=== PATIENT | female | born 1935 | race Caucasian/White ===

== ENCOUNTER 2019-08-03 16:00 | Inpatient (IN) ==
[2019-08-03] MEDS ORDERED: AZITHROMYCIN 250 MG TABLET PO STA (16:29)
[2019-08-03] MEDS ORDERED: cefTRIAXone 1,000 MG in SODIUM CHLORIDE 0.9% 100 ML IV STA (16:31)
[2019-08-03 16:36] LABS: Basophils % 0.1 % (0.0-0.8); Eosinophils # 0.1 10*3/uL (0.0-0.87); Eosinophils % 0.8 % (0.00-10.9); Hematocrit 40.6 VOL% (35.7-47.0); Hemoglobin 13.3 GM/DL (12.0-16.0); Immature Granulocytes % 0.5 %; Immature Granulocytes Absolute 0.06 #; Lymphocytes % 9.2 % (21.3-54.2); Mean Corpuscular HGB Conc 32.8 GM/DL (32-36); Mean Corpuscular Volume 86.6 FL (87-102); Mean Platelet Volume 11.2 FL (9.6-12.0); Monocytes % 4.7 % (1.7-12.7); Neutrophils % 84.7 % (38.7-73.9); Platelet Count 255 T/CUMM (130-400); Red Blood Count 4.69 MC/CUMM (3.8-5.5); Red Cell Distribution Width 13.5 % (9.3-17.3); White Blood Count 11.4 T/CUMM (4-12)
[2019-08-03 17:21] LABS: Albumin 2.4 G/DL (3.4-5.0); Bilirubin,Total 0.6 MG/DL (0.2-1.0); Calcium 8.6 MG/DL (8.5-10.1); Osmolality,Calculated 266.5 MOS/KG (273-304); Total Protein 6.7 G/DL (6.4-8.3)
[2019-08-03] MEDS: HYDROXYCHLOROQUINE 200 MG TABLET PO SCH ×2 (17:29→18:04)
[2019-08-03] MEDS: ZINC GLUCONATE 50 MG TABLET PO SCH ×2 (17:30→18:04)
[2019-08-03] MEDS ORDERED: PIPERACILLIN/TAZOBACTAM 3,375 MG in SODIUM CHLORIDE 0.9% 100 ML IV STA (17:39)
[2019-08-03] MEDS ORDERED: ACETAMINOPHEN 325 MG TABLET PO PRN (18:23)
[2019-08-03] MEDS ORDERED: ONDANSETRON 4 MG/2 ML VIAL IV PRN (18:23)
[2019-08-03] MEDS ORDERED: CEFEPIME 2,000 MG in SODIUM CHLORIDE 0.9% 100 ML IV SCH (18:30)
[2019-08-03] MEDS ORDERED: SODIUM CHLORIDE 0.9% 1,000 ML IV SCH (19:00)
[2019-08-03] MEDS: clonazePAM 0.5 MG TABLET PO SCH (21:18)
[2019-08-03] MEDS: busPIRone 5 MG TABLET PO SCH (21:18)
[2019-08-03] MEDS: DULoxetine 30 MG CAPSULE PO SCH (21:18)
[2019-08-03] MEDS: METOPROLOL TARTRATE 25 MG TABLET PO SCH (21:19)
[2019-08-03] MEDS: SODIUM CHLORIDE 0.9% 500 ML IV SCH (21:19)
[2019-08-03] MEDS: MEROPENEM 500 MG in SODIUM CHLORIDE 0.9% 100 ML IV SCH (21:25)
[2019-08-03] MEDS: GENTAMICIN INJ 320 MG in SODIUM CHLORIDE 0.9% 100 ML IV SCH (23:25)
[2019-08-04 01:37] LABS: Basophils % 0.2 % (0.0-0.8); Eosinophils # 0.1 10*3/uL (0.0-0.87); Hemoglobin 11.6 GM/DL (12.0-16.0); Immature Granulocytes % 0.3 %; Immature Granulocytes Absolute 0.03 #; Lymphocytes # 1.2 10*3/uL (1.4-4.0); Mean Corpuscular HGB Conc 33.1 GM/DL (32-36); Mean Corpuscular Volume 85.8 FL (87-102); Monocytes % 4.5 % (1.7-12.7); Platelet Count 222 T/CUMM (130-400); Red Blood Count 4.08 MC/CUMM (3.8-5.5); Red Cell Distribution Width 13.3 % (9.3-17.3); White Blood Count 10.4 T/CUMM (4-12)
[2019-08-04 01:39] LABS: Bilirubin,Total 0.5 MG/DL (0.2-1.0); Calcium 7.6 MG/DL (8.5-10.1); VLDL CHOLESTEROL 21.8 MG/DL
[2019-08-04] MEDS: MEROPENEM 500 MG in SODIUM CHLORIDE 0.9% 100 ML IV SCH ×3 (03:36→20:45)
[2019-08-04] MEDS ORDERED: GLUCAGON 1 MG VIAL IM PRN (08:11)
[2019-08-04] MEDS ORDERED: DEXTROSE 10% 250 ML BAG IV PRN (08:11)
[2019-08-04] MEDS: ASPIRIN EC 81 MG TABLET PO SCH (08:44)
[2019-08-04] MEDS: ENOXAPARIN 40 MG/0.4 ML SYRINGE SUBCUT SCH (08:44)
[2019-08-04] MEDS: METOPROLOL TARTRATE 25 MG TABLET PO SCH ×2 (08:45→20:45)
[2019-08-04] MEDS: PANTOPRAZOLE 40 MG TABLET PO SCH (08:45)
[2019-08-04] MEDS: busPIRone 5 MG TABLET PO SCH ×2 (08:45→20:45)
[2019-08-04] MEDS: DIGOXIN 0.125 MG TABLET PO SCH (08:45)
[2019-08-04] MEDS: AZITHROMYCIN 250 MG TABLET PO SCH (08:45)
[2019-08-04] MEDS: HYDROXYCHLOROQUINE 200 MG TABLET PO SCH ×2 (08:48→20:45)
[2019-08-04] MEDS: FLUTICASONE 50 MCG NASAL SPRAY 16 GM BOTTLE BOTH NARES SCH (08:49)
[2019-08-04] MEDS: SODIUM CHLORIDE 0.9% 500 ML IV SCH (08:54)
[2019-08-04 14:18] LABS: Apearance,Urine CLEAR (Clear); Bilirubin,Urine Negative (Negative); Blood, Urine Negative (Negative); Glucose,Urine (UA) Negative (Negative); Hyaline Casts,Urine 12 /LPF (0-3); Ketones,Urine Negative (Negative); Mucus,Urine Occasional /LPF (Occasional); Nitrite,Urine Negative (Negative); Protein,Urine 30 MG/DL; RBC,Urine 2 /HPF (0-4); Urine Color Yellow (Yellow); Urine Specific Gravity 1.013 (1.001-1.035); Urine Urobilinogen < 2.0 EU/DL (0.2-1.0); WBC,Urine 12 /HPF (0-6)
[2019-08-04] MEDS: DULoxetine 30 MG CAPSULE PO SCH (20:45)
[2019-08-05] MEDS: MEROPENEM 500 MG in SODIUM CHLORIDE 0.9% 100 ML IV SCH ×3 (05:15→19:46)
[2019-08-05 05:17] LABS: Basophils % 0.1 % (0.0-0.8); Eosinophils # 0.3 10*3/uL (0.0-0.87); Hematocrit 37.7 VOL% (35.7-47.0); Hemoglobin 12.1 GM/DL (12.0-16.0); Immature Granulocytes % 0.5 %; Immature Granulocytes Absolute 0.06 #; Mean Corpuscular HGB Conc 32.1 GM/DL (32-36); Mean Corpuscular Volume 87.5 FL (87-102); Mean Platelet Volume 11.4 FL (9.6-12.0); Monocytes % 5.2 % (1.7-12.7); Neutrophils % 84.2 % (38.7-73.9); Platelet Count 272 T/CUMM (130-400); Red Blood Count 4.31 MC/CUMM (3.8-5.5); Red Cell Distribution Width 13.6 % (9.3-17.3); White Blood Count 12.4 T/CUMM (4-12)
[2019-08-05 05:49] LABS: Albumin 1.8 G/DL (3.4-5.0); Bilirubin,Total 0.9 MG/DL (0.2-1.0); Calcium 8.4 MG/DL (8.5-10.1); Osmolality,Calculated 274.5 MOS/KG (273-304); Total Protein 5.6 G/DL (6.4-8.3)
[2019-08-05] MEDS: ASPIRIN EC 81 MG TABLET PO SCH (09:47)
[2019-08-05] MEDS: ENOXAPARIN 40 MG/0.4 ML SYRINGE SUBCUT SCH (09:48)
[2019-08-05] MEDS: FLUTICASONE 50 MCG NASAL SPRAY 16 GM BOTTLE BOTH NARES SCH (09:48)
[2019-08-05] MEDS: ZINC SULFATE 220 MG CAPSULE PO SCH (09:48)
[2019-08-05] MEDS: busPIRone 5 MG TABLET PO SCH ×2 (09:48→21:54)
[2019-08-05] MEDS: PANTOPRAZOLE 40 MG TABLET PO SCH (09:48)
[2019-08-05] MEDS: HYDROXYCHLOROQUINE 200 MG TABLET PO SCH ×2 (09:48→21:54)
[2019-08-05] MEDS: DIGOXIN 0.125 MG TABLET PO SCH (09:48)
[2019-08-05] MEDS: METOPROLOL TARTRATE 25 MG TABLET PO SCH ×2 (09:48→21:54)
[2019-08-05] MEDS: GENTAMICIN INJ 320 MG in SODIUM CHLORIDE 0.9% 100 ML IV SCH ×2 (09:49→11:11)
[2019-08-05] MEDS: AZITHROMYCIN 250 MG TABLET PO SCH (09:49)
[2019-08-05] MEDS: SODIUM CHLORIDE 0.9% 500 ML IV SCH (19:05)
[2019-08-05] MEDS: clonazePAM 0.5 MG TABLET PO SCH (19:46)
[2019-08-05] MEDS: DULoxetine 30 MG CAPSULE PO SCH (21:54)
[2019-08-06] MEDS: MEROPENEM 500 MG in SODIUM CHLORIDE 0.9% 100 ML IV SCH ×3 (03:29→20:45)
[2019-08-06 06:31] LABS: Basophils % 0.1 % (0.0-0.8); Eosinophils # 0.2 10*3/uL (0.0-0.87); Hematocrit 36.7 VOL% (35.7-47.0); Hemoglobin 12.1 GM/DL (12.0-16.0); Immature Granulocytes % 0.5 %; Immature Granulocytes Absolute 0.07 #; Lymphocytes # 1.1 10*3/uL (1.4-4.0); Lymphocytes % 7.6 % (21.3-54.2); Mean Corpuscular Volume 85.7 FL (87-102); Mean Platelet Volume 11.3 FL (9.6-12.0); Monocytes % 6.2 % (1.7-12.7); Neutrophils % 84.6 % (38.7-73.9); Platelet Count 293 T/CUMM (130-400); Red Blood Count 4.28 MC/CUMM (3.8-5.5); Red Cell Distribution Width 13.6 % (9.3-17.3); White Blood Count 14.9 T/CUMM (4-12)
[2019-08-06 06:50] LABS: Albumin 1.8 G/DL (3.4-5.0); Bilirubin,Total 0.8 MG/DL (0.2-1.0); Calcium 8.6 MG/DL (8.5-10.1); Osmolality,Calculated 270.8 MOS/KG (273-304); Total Protein 5.8 G/DL (6.4-8.3)
[2019-08-06] MEDS: METOPROLOL TARTRATE 25 MG TABLET PO SCH ×2 (09:41→20:45)
[2019-08-06] MEDS: busPIRone 5 MG TABLET PO SCH ×2 (09:41→20:45)
[2019-08-06] MEDS: AZITHROMYCIN 250 MG TABLET PO SCH (09:41)
[2019-08-06] MEDS: PANTOPRAZOLE 40 MG TABLET PO SCH (09:41)
[2019-08-06] MEDS: ASPIRIN EC 81 MG TABLET PO SCH (09:41)
[2019-08-06] MEDS: DIGOXIN 0.125 MG TABLET PO SCH (09:41)
[2019-08-06] MEDS: ENOXAPARIN 40 MG/0.4 ML SYRINGE SUBCUT SCH (09:41)
[2019-08-06] MEDS: FLUTICASONE 50 MCG NASAL SPRAY 16 GM BOTTLE BOTH NARES SCH (09:42)
[2019-08-06] MEDS: HYDROXYCHLOROQUINE 200 MG TABLET PO SCH ×2 (10:54→20:45)
[2019-08-06] MEDS ORDERED: GENTAMICIN INJ 320 MG in SODIUM CHLORIDE 0.9% 100 ML IV SCH (11:00)
[2019-08-06] MEDS: POTASSIUM CHLORIDE 20 MEQ TABLET PO PRN ×2 (15:10→15:34)
[2019-08-06] MEDS: DULoxetine 30 MG CAPSULE PO SCH (20:45)
[2019-08-07] MEDS: MEROPENEM 500 MG in SODIUM CHLORIDE 0.9% 100 ML IV SCH ×3 (05:00→20:38)
[2019-08-07] MEDS: ZINC OXIDE PASTE 113 GM TUBE TOP SCH ×2 (08:54→20:38)
[2019-08-07] MEDS: FLUTICASONE 50 MCG NASAL SPRAY 16 GM BOTTLE BOTH NARES SCH (08:55)
[2019-08-07] MEDS: ENOXAPARIN 40 MG/0.4 ML SYRINGE SUBCUT SCH (08:55)
[2019-08-07] MEDS: DIGOXIN 0.125 MG TABLET PO SCH (08:55)
[2019-08-07] MEDS: AZITHROMYCIN 250 MG TABLET PO SCH (08:55)
[2019-08-07] MEDS: HYDROXYCHLOROQUINE 200 MG TABLET PO SCH ×2 (08:56→20:40)
[2019-08-07] MEDS: METOPROLOL TARTRATE 25 MG TABLET PO SCH ×2 (08:56→20:38)
[2019-08-07] MEDS: PANTOPRAZOLE 40 MG TABLET PO SCH (08:56)
[2019-08-07] MEDS: busPIRone 5 MG TABLET PO SCH ×2 (08:57→20:38)
[2019-08-07] MEDS: ZINC SULFATE 220 MG CAPSULE PO SCH (08:57)
[2019-08-07] MEDS: ASPIRIN EC 81 MG TABLET PO SCH (08:57)
[2019-08-07 09:58] LABS: Calcium 8.7 MG/DL (8.5-10.1); Osmolality,Calculated 266.2 MOS/KG (273-304)
[2019-08-07 14:15] LABS: Basophils % 0.3 % (0.0-0.8); Eosinophils # 0.1 10*3/uL (0.0-0.87); Eosinophils % 0.9 % (0.00-10.9); Hematocrit 41.1 VOL% (35.7-47.0); Hemoglobin 13.5 GM/DL (12.0-16.0); Immature Granulocytes % 0.6 %; Immature Granulocytes Absolute 0.09 #; Lymphocytes # 1.5 10*3/uL (1.4-4.0); Lymphocytes % 9.6 % (21.3-54.2); Mean Corpuscular HGB Conc 32.8 GM/DL (32-36); Mean Corpuscular Volume 86.2 FL (87-102); Monocytes % 6.5 % (1.7-12.7); Neutrophils % 82.1 % (38.7-73.9); Platelet Count 363 T/CUMM (130-400); Red Blood Count 4.77 MC/CUMM (3.8-5.5); Red Cell Distribution Width 13.5 % (9.3-17.3); White Blood Count 15.4 T/CUMM (4-12)
[2019-08-07] MEDS: clonazePAM 0.5 MG TABLET PO SCH (20:37)
[2019-08-07] MEDS: DULoxetine 30 MG CAPSULE PO SCH (20:38)
[2019-08-08] MEDS: busPIRone 5 MG TABLET PO SCH ×2 (08:36→21:10)
[2019-08-08] MEDS: FLUTICASONE 50 MCG NASAL SPRAY 16 GM BOTTLE BOTH NARES SCH (08:40)
[2019-08-08] MEDS: METOPROLOL TARTRATE 25 MG TABLET PO SCH ×2 (08:40→21:10)
[2019-08-08] MEDS: DIGOXIN 0.125 MG TABLET PO SCH (08:41)
[2019-08-08] MEDS: ASPIRIN EC 81 MG TABLET PO SCH (08:41)
[2019-08-08] MEDS: HYDROXYCHLOROQUINE 200 MG TABLET PO SCH (08:42)
[2019-08-08] MEDS: ENOXAPARIN 40 MG/0.4 ML SYRINGE SUBCUT SCH (08:43)
[2019-08-08 10:28] LABS: Basophils % 0.3 % (0.0-0.8); Eosinophils # 0.2 10*3/uL (0.0-0.87); Eosinophils % 1.5 % (0.00-10.9); Hematocrit 39.2 VOL% (35.7-47.0); Hemoglobin 12.7 GM/DL (12.0-16.0); Immature Granulocytes % 0.5 %; Immature Granulocytes Absolute 0.07 #; Lymphocytes # 0.9 10*3/uL (1.4-4.0); Mean Corpuscular HGB Conc 32.4 GM/DL (32-36); Mean Corpuscular Volume 86.3 FL (87-102); Mean Platelet Volume 11.1 FL (9.6-12.0); Monocytes % 6.3 % (1.7-12.7); Neutrophils % 84.4 % (38.7-73.9); Platelet Count 353 T/CUMM (130-400); Red Blood Count 4.54 MC/CUMM (3.8-5.5); Red Cell Distribution Width 13.5 % (9.3-17.3); White Blood Count 13.2 T/CUMM (4-12)
[2019-08-08] MEDS: ZINC OXIDE PASTE 113 GM TUBE TOP SCH ×2 (10:32→21:10)
[2019-08-08 10:47] LABS: Calcium 8.5 MG/DL (8.5-10.1); Osmolality,Calculated 271.1 MOS/KG (273-304)
[2019-08-08] MEDS ORDERED: FUROSEMIDE 20 MG/2 ML VIAL IV ONE (11:00)
[2019-08-08 14:32] LABS: Apearance,Urine CLEAR (Clear); Bilirubin,Urine Negative (Negative); Blood, Urine Small mg/dL (Negative); Glucose,Urine (UA) Negative (Negative); Ketones,Urine Negative (Negative); Mucus,Urine Occasional /LPF (Occasional); Nitrite,Urine Negative (Negative); Protein,Urine Negative; RBC,Urine 2 /HPF (0-4); Squamous Epithelial Cell,Urine Occasional /HPF (0-10); Urine Color Straw (Yellow); Urine Specific Gravity 1.005 (1.001-1.035); Urine Urobilinogen < 2.0 EU/DL (0.2-1.0); WBC,Urine 5 /HPF (0-6)
[2019-08-08] MEDS: clonazePAM 0.5 MG TABLET PO SCH (21:10)
[2019-08-08] MEDS: DULoxetine 30 MG CAPSULE PO SCH (21:10)
[2019-08-09 05:57] LABS: Basophils # 0.1 10*3/uL (0.0-0.2); Basophils % 0.4 % (0.0-0.8); Eosinophils # 0.3 10*3/uL (0.0-0.87); Eosinophils % 2.5 % (0.00-10.9); Hemoglobin 13.3 GM/DL (12.0-16.0); Immature Granulocytes % 0.7 %; Immature Granulocytes Absolute 0.09 #; Lymphocytes # 1.7 10*3/uL (1.4-4.0); Lymphocytes % 12.3 % (21.3-54.2); Mean Corpuscular HGB Conc 32.4 GM/DL (32-36); Mean Corpuscular Volume 85.2 FL (87-102); Mean Platelet Volume 11.7 FL (9.6-12.0); Monocytes % 9.8 % (1.7-12.7); Neutrophils % 74.3 % (38.7-73.9); Platelet Count 362 T/CUMM (130-400); Red Blood Count 4.81 MC/CUMM (3.8-5.5); Red Cell Distribution Width 13.4 % (9.3-17.3); White Blood Count 13.7 T/CUMM (4-12)
[2019-08-09 06:12] LABS: Calcium 8.7 MG/DL (8.5-10.1)
[2019-08-09] MEDS: METOPROLOL TARTRATE 25 MG TABLET PO SCH (08:31)
[2019-08-09] MEDS: POTASSIUM CHLORIDE 20 MEQ TABLET PO PRN (08:31)
[2019-08-09] MEDS: busPIRone 5 MG TABLET PO SCH (08:31)
[2019-08-09] MEDS: ASPIRIN EC 81 MG TABLET PO SCH (08:31)
[2019-08-09] MEDS: DIGOXIN 0.125 MG TABLET PO SCH (08:31)
[2019-08-09] MEDS: FLUTICASONE 50 MCG NASAL SPRAY 16 GM BOTTLE BOTH NARES SCH (08:33)
[2019-08-09] MEDS: ZINC OXIDE PASTE 113 GM TUBE TOP SCH (08:33)
[2019-08-09] MEDS: ENOXAPARIN 40 MG/0.4 ML SYRINGE SUBCUT SCH (08:33)
[2019-08-09 14:36] VITALS: BP 149/80
== END 2019-08-09 14:30 | disposition home or self-care (01) | DRG 177 ==
LOC: EDUNIT# → EDBD → N.ED 16:00 → N.EDINP 18:22 → SUPCPDRO 18:22 → SUATTDRO 18:22 → N.EDINP 19:03 → N.CC 19:36 → N.2E 08-04 15:01 → N.2W 08-07 11:31
PROVIDERS: ADMIT Internal Medicine; ATTEND Internal Medicine